=== PATIENT | female | born 1975 | race Caucasian/White ===

== ENCOUNTER → 2017-12-19 | Outpatient (CLI) | payer OTHER ==
[~2017-12-19] MED LIST: IBUP600T44 PO; PRENTAB26 PO; RANITAB33 PO
[2017-12-19 12:25] LABS: HEMATOCRIT 41.2 % (37-47); HEMOGLOBIN 13.8 g/dL (12.0-16.0); MEAN CELL VOLUME 87.3 fL (80-100); MEAN CORPUSCULAR HEMOGLOBIN 29.2 pg (25-34); MEAN CORPUSCULAR HGB CONC 33.5 g/dl (32-36); MEAN PLATELET VOLUME 10.5 fL (7.4-10.4); PLATELET COUNT 263 K/uL (130-400); RED CELL DISTRIBUTION WIDTH SD 41.9 fL (36.4-46.3); WHITE BLOOD COUNT 5.78 K/uL (4.8-10.8)
== END | disposition home or self-care (01) ==
LOC: C.LAB1850 10:34
PROVIDERS: ATTEND Obstetrics & Gynecology
DX: N93.8 Other specified abnormal uterine and vaginal bleeding (principal)